=== PATIENT | male | born 1980 | race Two or more races ===

== ENCOUNTER 2024-06-23 21:58 | Emergency (ER) | payer MEDICAID ==
[~2024-06-23] VITALS: Ht 170.2 cm; Wt 75.2 kg
[2024-06-23 22:34] VITALS: TEMP 98.5; O2SAT 99
[2024-06-23 22:45] VITALS: O2SAT 98
[2024-06-24] MEDS ORDERED: KETOROLAC 15MG/ML VIAL IM ONE
[2024-06-24 02:00] VITALS: BP 127/89; PULSE 97; RESP 18
[2024-06-24] MEDS: KETOROLAC 15MG/ML VIAL IM NR (02:00)
[2024-06-24] MEDS ORDERED: LIDO700A15 TP (03:02)
[2024-06-24] MEDS ORDERED: NAPR-1176 MT (03:02)
== END 2024-06-24 05:04 | disposition home or self-care (01) ==
LOC: ER 21:58
DX: M25.521 Pain in right elbow (principal); M25.532 Pain in left wrist; Z79.1 Long term (current) use of non-steroidal anti-inflammatories (NSAID)
CPT/HCPCS: 96372; 99283